=== PATIENT | male | born 2005 | race Caucasian/White ===

== ENCOUNTER 2023-05-28 00:56 | Emergency (ER) | payer OTHER, MEDICAID ==
[2023-05-28] MEDS ORDERED: Diphtheria,Pertussis(Acell),Tetanus Vaccine 0.5 ML Syringe IM ONE (01:04)
[2023-05-28 01:08] LABS: BASOPHILS PERCENT AUTO 0.2 % (0.3-3.8); EOSINOPHILS PERCENT AUTO 0.3 % (0.1-6.8); HEMATOCRIT 47.8 % (38.3-50.1); HEMOGLOBIN 16.1 g/dL (12.9-17.7); LYMPHOCYTES ABSOLUTE AUTO 1.5 x10-3/uL (0.5-4.5); LYMPHOCYTES PERCENT AUTO 12.6 % (15.8-45.3); MEAN CORPUSCULAR HEMOGLOBIN 28.8 pg (27.0-33.3); MEAN CORPUSCULAR HGB CONC 33.6 g/dL (28.7-35.3); MEAN CORPUSCULAR VOLUME 85.9 fL (80.8-98.7); MEAN PLATELET VOLUME 7.4 fL (6.7-11.0); MONOCYTES ABSOLUTE AUTO 0.5 x10-3/uL (0.0-1.2); MONOCYTES PERCENT AUTO 4.4 % (5.5-15.2); NEUTROPHILS ABSOLUTE AUTO 10.1 x10-3/uL (1.7-6.9); NEUTROPHILS PERCENT AUTO 82.5 % (40.3-71.8); PLATELET COUNT,PLT 234 x10(3)uL (117-477); RED BLOOD CELL COUNT 5.57 x10(6)uL (3.90-5.90); RED CELL DISTRIBUTION WIDTH 13.7 % (12.4-15.0); WHITE BLOOD CELL COUNT,WBC 12.2 x10-3/uL (3.2-10.1)
[2023-05-28 01:10] LABS: BLOOD UREA NITROGEN,BUN 9 mg/dL (7-18); CALCIUM 8.8 mg/dL (8.2-10.1); CARBON DIOXIDE,CO2 24 mmol/L (21-32); CHLORIDE,CL 103 mmol/L (100-110); CREATININE 0.9 mg/dL (0.70-1.30); EST CRCL DRUG DOSING (CG) 132.02 mL/min; ESTIMATED GFR 126 mL/min (>60); GLUCOSE RANDOM 103 mg/dL (80-116); POTASSIUM,K 3.2 mmol/L (3.5-5.3); SODIUM,NA 142 mmol/L (135-145)
[2023-05-28 01:16] LABS: A/G RATIO 1.4; ALANINE AMINOTRANSFERASE,ALT 41 U/L (12-36); ALBUMIN 4.5 g/dL (3.2-4.5); ALKALINE PHOSPHATASE 82 IU/L (56-112); ASPARTATE AMNIOTRANSFERASE,AST 96 IU/L (5-25); BILIRUBIN TOTAL 0.6 mg/dL (0.1-1.2); PROTEIN TOTAL,TP 7.7 g/dL (6.0-8.0)
[2023-05-28] MEDS ORDERED: Iopamidol 755 Mg/ML 100 ML Bottle IV SCH (02:00)
== END 2023-05-28 02:15 ==
LOC: FB.ED 00:56
DX: S01.01XA Laceration without foreign body of scalp, initial encounter (principal); S09.90XA Unspecified injury of head, initial encounter; S39.91XA Unspecified injury of abdomen, initial encounter; E87.6 Hypokalemia; F10.129 Alcohol abuse with intoxication, unspecified; R74.01 Elevation of levels of liver transaminase levels; V89.2XXA Person injured in unspecified motor-vehicle accident, traffic, initial encounter; Z23 Encounter for immunization
CPT/HCPCS: 36415; 70450; 71260; 72125; 72128; 72131; 74177; 80053; 80307; 82550; 85025; 86140; 90471; 90715; 99285; 99285-25; Q9967